=== PATIENT | male | born 2005 | race Caucasian/White ===

== ENCOUNTER 2023-08-01 22:34 | Emergency (ER) | payer OTHER ==
[2023-08-01 22:47] VITALS: BP 99/65; PULSE 71; RESP 18; TEMP 97.6; BMI 23.3
[2023-08-02] MEDS ORDERED: AZITHROMYCIN 500 MG TABLET ONE (00:12)
[2023-08-02] MEDS ORDERED: DIPHTH,PERTUSS(ACELL),TET 0.5 ML DISP.SYRIN IM ONE (00:12)
[2023-08-02] MEDS: DIPHTH,PERTUSS(ACELL),TET 0.5 ML DISP.SYRIN IM ONE (00:15)
[2023-08-02] MEDS: AZITHROMYCIN 500 MG TABLET PO ONE (00:17)
== END 2023-08-02 00:20 | disposition home or self-care (01) ==
LOC: JER 22:34
PROC: 3E0234Z Introduction of Serum, Toxoid and Vaccine into Muscle, Percutaneous Approach (ICD-10-PCS; principal; 2023-08-02)
DX: S90.811A Abrasion, right foot, initial encounter (principal); S91.332A Puncture wound without foreign body, left foot, initial encounter; W55.03XA Scratched by cat, initial encounter
CPT/HCPCS: 90471; 90715; 99284-25